=== PATIENT | male | born 1970 | race African-American/Black ===

== ENCOUNTER → 2017-02-11 | Day surgery (SDC) | payer OTHER ==
[2017-02-03 10:35] VITALS: BMI 29.0
[~2017-02-11] VITALS: Ht 185.4 cm; Wt 102.3 kg
[~2017-02-11] MED LIST: ANSS RE; CETI10TA84 PO; CICL160A INH; CLN200 PO; CLON0.2T PO; DOCU100C31 PO; FERR1TAB13 PO; FIBER PO; FLUT0.15 NAE; LABETALOL HCL IV 5 MG/ML 20ML IV ONE; LIDOCAINE HCL 2% 2 ML VIAL (20MG/ML) ONE; LISI-461 PO; MIDAZOLAM HCL 1 MG/ML 2ML VIAL ONE; NORT75CA PO; ONDANSETRON INJ 2 MG/ML 2 ML VIAL ONE; PRLSR20 PO; PROPOFOL IV EMULSION 10 MG/ML 20 ML VIAL IV ONE; VNTHFA/IN INH
[2017-02-11 11:43] VITALS: Ht 185.4 cm; Wt 102.3 kg
--- NOTE | 2017-02-11 12:38 | Endo History and Physical ---
History & Physical Date of Service: February 11, 2017. Chief Complaint: Rectal bleeding Referring Physician: Dr. Moore History of Present Illness 46 yo AAM who presents for EGD and Colonoscopy secondary to rectal bleeding. Past Surgical History Hx Cardiac Surgery: No Hx Internal Defibrillator: No Hx Pacemaker: No Hx Abdominal Surgery: No Hx of Implantable Prosthesis: No Hx Cancer Surgery: No Hx Thoracic Surgery: No Hx Orthopedic: No Hx Urinary Tract Surgery: No Social History Smoking Status: Former Smoker Hx Substance Use: No Hx Alcohol Use: No Allergies Coded Allergies: Latex (Verified Allergy, Unknown, UNKNOWN-NOTED LATEX GLOVES, 02/03/17) NO KNOWN DRUG ALLERGIES (Verified Allergy, Unknown, ., 02/03/17) Current Medications Reported Home Medications Medications Dose Route/Sig Max Daily Dose Days Date Category Ventolin Hfa (Albuterol) 200 Puffs/55693 Mcg Aers 2-4 Puffs INH Q6H PRN 02/03/17 Reported Sulindac 200 Mg Tab 1 Tab PO BID PRN 02/03/17 Reported Prilosec (Omeprazole) 20 Mg Capcr 20 Mg PO DAILY 02/03/17 Reported Pamelor (Nortriptyline Hcl) 75 Mg Cap 75 Mg PO HS 02/03/17 Reported Zestril (Lisinopril) 10 Mg Tab 10 Mg PO DAILY 02/03/17 Reported Flonase Allergy Relief (Fluticasone Propionate (Nasal)) 50 Mcg/Act Spr 1 [place] AMAYA DAILY 02/03/17 Reported Fiber Laxative (Fiber) Ea 1 Tab PO BID PRN 02/03/17 Reported Kp Ferrous Sulfate (Ferrous Sulfate) 325 Mg Tab 1 Tab PO BID 30 02/03/17 Reported Docusate Sodium 100 Mg Cap 1 Cap PO BID PRN 7 02/03/17 Reported Catapres (Clonidine Hcl) 0.2 Mg Tab 0.2 Mg PO QPM 02/03/17 Reported Zyrtec (Cetirizine HCl) 10 Mg Tab 10 Mg PO DAILY 02/03/17 Reported [place]-Med (Phenylephrine In Hard Fat) 1 Ea Supp 1 Dose RE BID PRN 02/03/17 Reported [place] (Ciclesonide) 160 Mcg/Act Aer 1 Puff INH BID 02/03/17 Reported Vital Signs Weight (Kilograms): 102.27 Height (Feet): 6 Height (Inches): 1 Date Time Temp Pulse Resp B/P Pulse Ox O2 Delivery O2 Flow Rate FiO2 02/11/17 11:50 36.8 83 20 168/91 100 Room Air Physical Exam General Appearance: WD/WN, no apparent distress Respiratory/Chest: Auscultation: breath sounds normal Cardiovascular: Heart Auscultation: RRR Abdomen: Bowel Sounds: normal Inspection & Palpation: soft, non-distended, no tenderness, guarding & rebound Assessment and Plan Assessment: 46 yo AAM who presents for EGD and Colonoscopy secondary to rectal bleeding. Plan: Proceed with EGD and colonoscopy.
--- NOTE | 2017-02-11 13:09 | GI REPORT ---
Procedure Date: 02/11/2017 12:48 PM Procedure: Colonoscopy Indications: Rectal bleeding Medicines: Monitored Anesthesia Care Complications: No immediate complications. Estimated Blood Loss: Estimated blood loss: none. Procedure: Pre-Anesthesia Assessment: - Prior to the procedure, a History and Physical was performed, and patient medications and allergies were reviewed. The patient's tolerance of previous anesthesia was also reviewed. The risks and benefits of the procedure and the sedation options and risks were discussed with the patient. All questions were answered, and informed consent was obtained. Prior Anticoagulants: The patient has taken no previous anticoagulant or antiplatelet agents. ASA Grade Assessment: III - A patient with severe systemic disease. After reviewing the risks and benefits, the patient was deemed in satisfactory condition to undergo the procedure. After I obtained informed consent, the scope was passed under direct vision. Throughout the procedure, the patient's blood pressure, pulse, and oxygen saturations were monitored continuously. The scope was introduced through the anus and advanced to the terminal ileum. The colonoscopy was performed without difficulty. The patient tolerated the procedure well. The quality of the bowel preparation was good. The terminal ileum, ileocecal valve, appendiceal orifice, and rectum were photographed. Findings: A 4 mm polyp was found in the sigmoid colon. The polyp was sessile. The polyp was removed with a hot snare. Resection and retrieval were complete. Non-bleeding internal hemorrhoids were found during retroflexion. The hemorrhoids were small. Impression: - One 4 mm polyp in the sigmoid colon, removed with a hot snare. Resected and retrieved. - Non-bleeding internal hemorrhoids. Recommendation: - Resume previous diet. - Continue present medications. - Repeat colonoscopy for surveillance based on pathology results. - Return to primary care physician as previously scheduled. Festus Carter DO 02/11/2017 1:08:50 PM This report has been signed electronically. Note Initiated On: 02/11/2017 12:48 PM I attest to the content of the Intraoperative Record and orders documented therein, exceptions below
--- NOTE | 2017-02-11 13:11 | GI REPORT ---
Procedure Date: 02/11/2017 12:33 PM Procedure: Upper GI endoscopy Indications: Hematochezia Medicines: Monitored Anesthesia Care Complications: No immediate complications. Estimated Blood Loss: Estimated blood loss: none. Procedure: Pre-Anesthesia Assessment: - Prior to the procedure, a History and Physical was performed, and patient medications and allergies were reviewed. The patient's tolerance of previous anesthesia was also reviewed. The risks and benefits of the procedure and the sedation options and risks were discussed with the patient. All questions were answered, and informed consent was obtained. Prior Anticoagulants: The patient has taken no previous anticoagulant or antiplatelet agents. ASA Grade Assessment: III - A patient with severe systemic disease. After reviewing the risks and benefits, the patient was deemed in satisfactory condition to undergo the procedure. After obtaining informed consent, the endoscope was passed under direct vision. Throughout the procedure, the patient's blood pressure, pulse, and oxygen saturations were monitored continuously. The Scope was introduced through the mouth, and advanced to the second part of duodenum. The upper GI endoscopy was accomplished without difficulty. The patient tolerated the procedure well. Findings: The esophagus was normal. A small hiatus hernia was present. Localized mild inflammation characterized by erythema was found in the gastric antrum. Biopsies were taken with a cold forceps for histology. The examined duodenum was normal. Impression: - Normal esophagus. - Small hiatus hernia. - Gastritis. Biopsied. - Normal examined duodenum. Recommendation: - Resume previous diet. - Continue present medications. - Await pathology results. - Return to primary care physician as previously scheduled. Festus Carter DO 02/11/2017 1:10:24 PM This report has been signed electronically. Note Initiated On: 02/11/2017 12:33 PM I attest to the content of the Intraoperative Record and orders documented therein, exceptions below
--- NOTE | 2017-02-11 13:36 | Anesthesiology Progress Note ---
Anesthesia Post Op Note Date & Time February 11, 2017 at 13:36 Vital Signs Pain Intensity: 0 Vital Signs Past 12 Hours Date Time Temp Pulse Resp B/P Pulse Ox O2 Delivery O2 Flow Rate FiO2 02/11/17 13:23 87 16 156/69 97 Room Air 02/11/17 13:07 87 16 140/60 97 Room Air 02/11/17 11:50 36.8 83 20 168/91 100 Room Air Notes Mental Status: alert / awake / arousable, participated in evaluation Pt Amnestic to Procedure: Yes Nausea / Vomiting: adequately controlled Pain: adequately controlled Airway Patency, RR, SpO2: stable & adequate BP & HR: stable & adequate Hydration State: stable & adequate Anesthetic Complications: no major complications apparent
--- NOTE | 2017-02-11 13:42 | Discharge Instructions ---
Endoscopy Patient Instructions Date / Procedure(s) Performed February 11, 2017. Colonoscopy, EGD Allergy Information Coded Allergies: Latex (Verified Allergy, Unknown, UNKNOWN-NOTED LATEX GLOVES, 02/03/17) NO KNOWN DRUG ALLERGIES (Verified Allergy, Unknown, ., 02/03/17) Discharge Date / Findings February 11, 2017. EGD: Gastritis s/p biopsies and Hiatal hernia Colonoscopy: Colon polyp and internal hemorrhoids Medication Instructions OK to resume all medications today as prescribed Reported Home Medications Medications Dose Route/Sig Max Daily Dose Days Date Category Ventolin Hfa (Albuterol) 200 Puffs/60461 Mcg Aers 2-4 Puffs INH Q6H PRN 02/03/17 Reported Sulindac 200 Mg Tab 1 Tab PO BID PRN 02/03/17 Reported Prilosec (Omeprazole) 20 Mg Capcr 20 Mg PO DAILY 02/03/17 Reported Pamelor (Nortriptyline Hcl) 75 Mg Cap 75 Mg PO HS 02/03/17 Reported Zestril (Lisinopril) 10 Mg Tab 10 Mg PO DAILY 02/03/17 Reported Flonase Allergy Relief (Fluticasone Propionate (Nasal)) 50 Mcg/Act Spr 1 [place] AMAYA DAILY 02/03/17 Reported Fiber Laxative (Fiber) Ea 1 Tab PO BID PRN 02/03/17 Reported Kp Ferrous Sulfate (Ferrous Sulfate) 325 Mg Tab 1 Tab PO BID 30 02/03/17 Reported Docusate Sodium 100 Mg Cap 1 Cap PO BID PRN 7 02/03/17 Reported Catapres (Clonidine Hcl) 0.2 Mg Tab 0.2 Mg PO QPM 02/03/17 Reported Zyrtec (Cetirizine HCl) 10 Mg Tab 10 Mg PO DAILY 02/03/17 Reported [place] Maria-Med (Phenylephrine In Hard Fat) 1 Ea Supp 1 Dose RE BID PRN 02/03/17 Reported [place] (Ciclesonide) 160 Mcg/Act Aer 1 Puff INH BID 02/03/17 Reported Provider Instructions Activity Restrictions - No exercising or heavy lifting for 24 hours. - Do not drink alcohol the day of the procedure. - Do not drive a car or operate machinery until the day after the procedure. - Do not make any important decisions or sign important papers in 24 hours after the procedure. Following Day: - Return to full activity which may include returning to work/school. Diet Start your diet with liquids and light foods (jello, soup, juice, toast). Then eat your usual diet if not nauseated. Treatment For Common After Affects For mild abdominal pain, bloating, or excessive gas: - Rest - Eat lightly - Lie on right side Follow-Up Information Follow-up with as scheduled Anesthesia Information What You Should Know You have had a procedure that required some medicine to reduce anxiety and discomfort. This treatment is called moderate sedation. After receiving the treatment, you may be sleepy, but you will be able to breathe on your own. The effects of the treatment may last for several hours. Follow these instructions along with Activity/Diet recommendations noted above: * Do NOT do anything where dizziness or clumsiness would be dangerous. * Rest quietly at home today, then you can be up and about tomorrow. * Have a responsible person stay with you the rest of today. * You may have had an I.V. today. If so, you may take the dressing off later today. Recommendations Call your doctor if: * Trouble breathing * Continuous vomiting for more than 24 hours * Temperature above 101 degrees * Severe abdominal pain or bloating * Pain not relieved by pain medicine ordered * There is increased drainage or redness from any incision * A large amount of rectal bleeding greater than 2-3 tablespoons. (If you had a polyp/s removed or have hemorrhoids, a small amount of blood - from the rectum is to be expected.) * You have any unanswered questions or concerns. IN THE EVENT OF A SERIOUS EMERGENCY, GO TO THE NEAREST EMERGENCY ROOM Your discharge instructions were prepared by provider Festus Carter. Patient Instructions Signature Page Hang Brewer Patient (or Guardian) Signature/Date: I have read and understand the instructions given to me by my caregivers. Caregiver/RN/Doctor Signature/Date: The above-named patient and/or guardian has received patient instructions on this date. + Original Patient Signature Page (only) stays with chart. Please make copy for patient.
[2017-02-11 14:10] VITALS: BP 160/98; PULSE 82; O2SAT 98
== END | disposition home or self-care (01) ==
LOC: C.GI 11:24
PROVIDERS: ATTEND Internal Medicine
DX: K62.5 Hemorrhage of anus and rectum (principal); K29.50 Unspecified chronic gastritis without bleeding; D12.5 Benign neoplasm of sigmoid colon; K44.9 Diaphragmatic hernia without obstruction or gangrene; K64.8 Other hemorrhoids; Z91.040 Latex allergy status; J45.909 Unspecified asthma, uncomplicated; Z68.29 Body mass index [BMI] 29.0-29.9, adult; Z98.890 Other specified postprocedural states